=== PATIENT | female | born 1950 ===

== ENCOUNTER 2022-05-10 05:33 | Day surgery (SDC) | payer OTHER | END 2022-05-10 09:35 | disposition home or self-care (01) | LOC: AMB-ENDOS 05:33 | PROVIDERS: ATTEND Colon & Rectal Surgery | DX: K62.4 Stenosis of anus and rectum (principal); C18.7 Malignant neoplasm of sigmoid colon; Z91.041 Radiographic dye allergy status; Z85.038 Personal history of other malignant neoplasm of large intestine; Z20.822 Contact with and (suspected) exposure to COVID-19; E10.9 Type 1 diabetes mellitus without complications; E78.5 Hyperlipidemia, unspecified; K64.1 Second degree hemorrhoids ==